=== PATIENT | male | born 1960 ===

== ENCOUNTER 2023-02-02 10:48 | Inpatient (IN) | payer OTHER ==
[~2023-02-02] VITALS: Ht 175.3 cm; Wt 90.7 kg
[2023-02-02] MEDS ORDERED: PRAVASTATIN SOD40 MG PO (14:07)
[2023-02-02] MEDS ORDERED: TYLENOL ARTHRI650 MG PO (14:08)
[2023-02-02] MEDS ORDERED: PANADOL PO (14:08)
[2023-02-06] MEDS ORDERED: PERCOCET 5-3251 EACH PO (10:41)
[2023-02-06] MEDS ORDERED: AMOX-CLAV 875-1 EACH PO (10:42)
[2023-02-06] MEDS ORDERED: MEDROLPACK PO (10:42)
[2023-02-06] MEDS ORDERED: COLACE100 MG PO (10:42)
[2023-02-06] MEDS ORDERED: NEURONTIN800 MG PO (10:44)
== END 2023-02-08 10:32 | disposition home health service (06) | DRG 455 ==
LOC: O/R 02-06 06:00 → SURH 02-06 11:15 → SURG 02-06 17:04 → PED 02-06 17:06
PROVIDERS: ADMIT Orthopaedic Surgery Orthopaedic Surgery of the Spine; ATTEND Orthopaedic Surgery Orthopaedic Surgery of the Spine
PROC: 0SG0071 Fusion of Lumbar Vertebral Joint with Autologous Tissue Substitute, Posterior Approach, Posterior Column, Open Approach (ICD-10-PCS; 2023-02-06)
PROC: 0ST20ZZ Resection of Lumbar Vertebral Disc, Open Approach (ICD-10-PCS; 2023-02-06)
PROC: 0QB30ZZ Excision of Left Pelvic Bone, Open Approach (ICD-10-PCS; 2023-02-06)
PROC: 07DR0ZZ Extraction of Iliac Bone Marrow, Open Approach (ICD-10-PCS; 2023-02-06)
PROC: XRGB0R7 Fusion of Lumbar Vertebral Joint using Custom-Made Anatomically Designed Interbody Fusion Device, Open Approach, New Technology Group 7 (ICD-10-PCS; principal; 2023-02-06 14:30)
DX: M43.16 Spondylolisthesis, lumbar region (principal); M48.062 Spinal stenosis, lumbar region with neurogenic claudication; E78.5 Hyperlipidemia, unspecified